=== PATIENT | male | born 1955 | race Caucasian/White ===

== ENCOUNTER 2017-11-21 23:41 | Observation (INO) | payer OTHER ==
[~2017-11-21] VITALS: Ht 185.4 cm; Wt 77.1 kg
[2017-11-22] MEDS ORDERED: DIPH,PERTUSS(ACELL),TET VAC/PF 0.5 ML IM-VACC ONE ×2 (00:17→00:30)
[2017-11-22 00:22] LABS: BASOPHILS % (AUTO) 0 % (0-1); EOSINOPHILS % (AUTO) 0 % (1-7); LYMPHOCYTES # (AUTO) 0.33 x10^3/uL (1-3.4); LYMPHOCYTES % (AUTO) 4 % (22-44); MD NO; MEAN CORPUSCULAR HEMOGLOBIN 31.7 pg (27.5-34.5); MEAN CORPUSCULAR HGB CONC 34.1 g/dL (33.2-36.2); MEAN CORPUSCULAR VOLUME 92.9 fL (81-97); MEAN PLATELET VOLUME 7.6 fL (7.4-10.4); MONOCYTES # (AUTO) 0.68 x10^3/uL (0.2-0.8); MONOCYTES % (AUTO) 8 % (2-9); NEUTROPHILS # (AUTO) 7.84 x10^3/uL (1.8-6.8); NEUTROPHILS % (AUTO) 89 % (42-75); PLATELET COUNT 253 x10^3/uL (130-400); RED BLOOD COUNT 3.81 x10^6/uL (4.38-5.82); RED CELL DISTRIBUTION WIDTH 12.7 % (9.4-14.8)
[2017-11-22] MEDS ORDERED: LIDOCAINE 2%, 20ML INFIL ONE (00:30)
[2017-11-22 00:34] LABS: CHLORIDE 109 mmol/L (98-107)
[2017-11-22 00:35] LABS: ALBUMIN 3.7 g/dL (3.4-5.0); ANION GAP 10 mmol/L (5-15); CALCIUM 9.2 mg/dL (8.5-10.1); CREATININE 1.25 mg/dL (0.7-1.3)
[2017-11-22 00:38] LABS: TROPONIN I < 0.015 ng/mL (0.000-0.045)
[2017-11-22] MEDS ORDERED: LIDOCAINE-MPF 2% ,5ML ONE (01:21)
[2017-11-22] MEDS ORDERED: LIDOCAINE-MPF 2% ,5ML INFIL ONE (02:00)
[2017-11-22] MEDS ORDERED: OLAN15TA9 PO (02:07)
[2017-11-22] MEDS ORDERED: SODIUM CHLORIDE 0.9% 1,000 ML IV ONE (02:27)
[2017-11-22] MEDS ORDERED: ONDANSETRON 2MG/ML, 2ML IVPush PRN ×2 (02:30→06:00)
[2017-11-22 03:30] VITALS: BP 152/67
[2017-11-22] MEDS ORDERED: ACETAMINOPHEN 325 MG TABLET PO PRN (06:00)
[2017-11-22] MEDS ORDERED: POLYETHYLENE GLYCOL 17 GM PACKET PO PRN (06:00)
[2017-11-22] MEDS ORDERED: DOCUSATE 100 MG CAPSULE PO PRN (06:00)
[2017-11-22] MEDS: INSULIN LISPRO 100 UNITS/ML, PEN SQ-INSULIN SCH ×4 (07:00→21:28)
[2017-11-22 07:16] LABS: TROPONIN I < 0.015 ng/mL (0.000-0.045)
[2017-11-22 09:00] VITALS: BP 154/62
[2017-11-22] MEDS: SENNA/DOCUSATE TABLET PO SCH (09:00)
[2017-11-22 09:07] VITALS: BP 101/65
[2017-11-22] MEDS: SODIUM CHLORIDE FLUSH 10ML SYR IVF SCH ×2 (09:22→21:21)
[2017-11-22] MEDS: OLANZAPINE 5 MG TABLET PO SCH ×2 (09:22→21:00)
[2017-11-22 16:30] VITALS: BP 128/63
[2017-11-22 20:00] VITALS: BP 145/70
[2017-11-22] MEDS ORDERED: OLANZAPINE 10 MG TABLET ONE ×2 (20:59)
[2017-11-23 01:02] VITALS: BP 132/65
[2017-11-23 08:06] VITALS: BP 159/70
[2017-11-23] MEDS: INSULIN LISPRO 100 UNITS/ML, PEN SQ-INSULIN SCH ×3 (08:31→16:17)
[2017-11-23] MEDS: SODIUM CHLORIDE FLUSH 10ML SYR IVF SCH (08:32)
[2017-11-23] MEDS: SENNA/DOCUSATE TABLET PO SCH (08:33)
[2017-11-23] MEDS: OLANZAPINE 5 MG TABLET PO SCH ×2 (08:33→12:21)
[2017-11-23 10:18] LABS: BASOPHILS # (AUTO) 0.02 x10^3/uL (0-0.1); BASOPHILS % (AUTO) 1 % (0-1); EOSINOPHILS # (AUTO) 0.11 x10^3/uL (0-0.4); EOSINOPHILS % (AUTO) 2 % (1-7); LYMPHOCYTES # (AUTO) 1.02 x10^3/uL (1-3.4); LYMPHOCYTES % (AUTO) 20 % (22-44); MD NO; MEAN CORPUSCULAR HEMOGLOBIN 31.4 pg (27.5-34.5); MEAN CORPUSCULAR HGB CONC 33.9 g/dL (33.2-36.2); MEAN CORPUSCULAR VOLUME 92.7 fL (81-97); MEAN PLATELET VOLUME 7.4 fL (7.4-10.4); MONOCYTES # (AUTO) 0.54 x10^3/uL (0.2-0.8); MONOCYTES % (AUTO) 11 % (2-9); NEUTROPHILS # (AUTO) 3.48 x10^3/uL (1.8-6.8); NEUTROPHILS % (AUTO) 67 % (42-75); PLATELET COUNT 230 x10^3/uL (130-400); RED BLOOD COUNT 3.75 x10^6/uL (4.38-5.82); RED CELL DISTRIBUTION WIDTH 12.7 % (9.4-14.8)
[2017-11-23 10:32] LABS: ALANINE AMINOTRANSFERASE 46 U/L (12-78); ALBUMIN 2.9 g/dL (3.4-5.0); ANION GAP 8 mmol/L (5-15); CALCIUM 8.7 mg/dL (8.5-10.1); CHLORIDE 108 mmol/L (98-107); CREATININE 0.84 mg/dL (0.7-1.3)
[2017-11-23 10:40] LABS: ALKALINE PHOSPHATASE 78 U/L (45-117); BILIRUBIN,TOTAL 0.7 mg/dL (0.2-1.0); TOTAL PROTEIN 6.6 g/dL (6.4-8.2)
[2017-11-23] MEDS ORDERED: POTASSIUM CHLORIDE 20 MEQ TAB.ER.PRT PO ONE (11:30)
[2017-11-23 13:29] VITALS: BP 123/69
[2017-11-23] MEDS ORDERED: GADOBUTROL 7.5 MMOL/7.5 ML PFS ONE (15:16)
[2017-11-23] MEDS ORDERED: AMOXICILLIN/CLAV 875-125MG TABLET PO SCH (21:00)
== END 2017-11-23 18:23 | disposition home or self-care (01) ==
LOC: ED 23:59 → EDIP 11-22 02:43 → INTOOBSV 11-22 02:43 → 5SO 11-22 03:13
PROVIDERS: ADMIT Family Medicine; ATTEND Family Medicine
DX: S01.81XA Laceration without foreign body of other part of head, initial encounter (principal); S06.0X9A Concussion with loss of consciousness of unspecified duration, initial encounter; R55 Syncope and collapse; I10 Essential (primary) hypertension; G93.40 Encephalopathy, unspecified; F31.9 Bipolar disorder, unspecified; E11.9 Type 2 diabetes mellitus without complications; R53.2 Functional quadriplegia; Z23 Encounter for immunization; W01.0XXA Fall on same level from slipping, tripping and stumbling without subsequent striking against object, initial encounter; Y92.89 Other specified places as the place of occurrence of the external cause; Y93.89 Activity, other specified; Y99.8 Other external cause status
CPT/HCPCS: 12013; 36415; 70450; 70553; 71045; 72125; 80048; 80053; 82040; 82962; 84484; 85025; 90471; 90715; 93005; 93306; 93971; 97116; 97162; 97530; 99285; A9585; G0378; J1815

== ENCOUNTER 2018-03-24 11:52 | Inpatient (IN) | payer OTHER ==
[~2018-03-24] VITALS: Ht 180.3 cm; Wt 79.5 kg
[~2018-03-24 11:52] MED LIST: OLAN15TA9 PO
[2018-03-24] MEDS ORDERED: KETAMINE 100 MG/ML, 5ML IM ONE ×2 (12:00→13:30)
[2018-03-24] MEDS ORDERED: KETAMINE 50 MG/ML, 10ML ONE (12:01)
[2018-03-24 12:28] LABS: BASOPHILS # (AUTO) 0.02 x10^3/uL (0-0.1); BASOPHILS % (AUTO) 0 % (0-1); EOSINOPHILS # (AUTO) 0.08 x10^3/uL (0-0.4); EOSINOPHILS % (AUTO) 1 % (1-7); LYMPHOCYTES # (AUTO) 1.04 x10^3/uL (1-3.4); LYMPHOCYTES % (AUTO) 12 % (22-44); MD NO; MEAN CORPUSCULAR HGB CONC 33.8 g/dL (33.2-36.2); MEAN CORPUSCULAR VOLUME 91.8 fL (81-97); MEAN PLATELET VOLUME 7.6 fL (7.4-10.4); MONOCYTES # (AUTO) 0.69 x10^3/uL (0.2-0.8); MONOCYTES % (AUTO) 8 % (2-9); NEUTROPHILS # (AUTO) 6.78 x10^3/uL (1.8-6.8); NEUTROPHILS % (AUTO) 79 % (42-75); PLATELET COUNT 265 x10^3/uL (130-400); RED BLOOD COUNT 4.31 x10^6/uL (4.38-5.82); RED CELL DISTRIBUTION WIDTH 14.2 % (9.4-14.8)
[2018-03-24] MEDS ORDERED: PLEASE ENTER HEIGHT AND WEIGHT MC SCH (12:30)
[2018-03-24 12:40] LABS: ALANINE AMINOTRANSFERASE 43 U/L (12-78); ALBUMIN 3.6 g/dL (3.4-5.0); ANION GAP 8 mmol/L (5-15); CALCIUM 8.4 mg/dL (8.5-10.1); CHLORIDE 115 mmol/L (98-107); SALICYLATE LEVEL 5.8 mg/dL (2.8-20.0)
[2018-03-24 12:52] LABS: ALKALINE PHOSPHATASE 95 U/L (45-117); BILIRUBIN,TOTAL 0.5 mg/dL (0.2-1.0); CREATININE 1.22 mg/dL (0.7-1.3); THYROID STIMULATING HORMONE 0.685 mIU/L (0.358-3.740); TOTAL PROTEIN 7.5 g/dL (6.4-8.2)
[2018-03-24] MEDS ORDERED: ZIPRASIDONE 20 MG INJ IM ONE ×2 (13:00→13:57)
[2018-03-24 13:04] LABS: ACETAMINOPHEN < 2 mcg/mL (10-30)
[2018-03-24] MEDS ORDERED: SODIUM CHLORIDE 0.9% 1,000ML IVBOLUS ONE (15:00)
[2018-03-24] MEDS ORDERED: LORazepam 1MG TABLET PO ONE (18:30)
[2018-03-24] MEDS ORDERED: DIPHENHYDRAMINE 50 MG CAPSULE ONE (18:36)
[2018-03-24] MEDS ORDERED: LORazepam 1MG TABLET ONE (18:37)
[2018-03-24] MEDS ORDERED: DIPHENHYDRAMINE 25 MG CAPSULE PO ONE (19:00)
[2018-03-24] MEDS ORDERED: POLYETHYLENE GLYCOL 17 GM PACKET PO PRN (20:00)
[2018-03-24] MEDS ORDERED: ACETAMINOPHEN 325 MG TABLET PO PRN (20:00)
[2018-03-24] MEDS ORDERED: ONDANSETRON 2MG/ML, 2ML IVPush PRN (20:00)
[2018-03-24] MEDS ORDERED: BISACODYL 10 MG SUPP PR PRN (20:00)
[2018-03-24] MEDS: HEPARIN 5,000 UNITS/ML, 1ML SQ SCH (22:00)
[2018-03-24] MEDS: NS + 20MEQ KCL 1,000 ML IV SCH (23:11)
[2018-03-24] MEDS: OLANZAPINE 5 MG TABLET PO SCH (23:11)
[2018-03-25] MEDS ORDERED: ZIPRASIDONE 20 MG INJ IM ONE (01:00)
[2018-03-25 02:00] VITALS: BP 126/68
[2018-03-25 04:35] LABS: MICROSCOPIC AUTO
[2018-03-25 04:37] LABS: CULTURE INDICATED? NO
[2018-03-25 04:43] LABS: AMPHETAMINE SCREEN, URINE Negative (Negative); BARBITURATE SCREEN, URINE Negative (Negative); BENZODIAZEPINE SCREEN, URINE Negative (Negative); CANNABINOID SCREEN, URINE Negative (Negative); COCAINE SCREEN, URINE Negative (Negative); METHADONE SCREEN, URINE Negative (Negative); OPIATE SCREEN, URINE Negative (Negative)
[2018-03-25 05:36] LABS: BASOPHILS # (AUTO) 0.02 x10^3/uL (0-0.1); BASOPHILS % (AUTO) 1 % (0-1); EOSINOPHILS # (AUTO) 0.12 x10^3/uL (0-0.4); EOSINOPHILS % (AUTO) 3 % (1-7); LYMPHOCYTES # (AUTO) 1.08 x10^3/uL (1-3.4); LYMPHOCYTES % (AUTO) 22 % (22-44); MD NO; MEAN CORPUSCULAR HEMOGLOBIN 31.4 pg (27.5-34.5); MEAN CORPUSCULAR HGB CONC 33.9 g/dL (33.2-36.2); MEAN CORPUSCULAR VOLUME 92.4 fL (81-97); MONOCYTES # (AUTO) 0.48 x10^3/uL (0.2-0.8); MONOCYTES % (AUTO) 10 % (2-9); NEUTROPHILS # (AUTO) 3.27 x10^3/uL (1.8-6.8); NEUTROPHILS % (AUTO) 66 % (42-75); PLATELET COUNT 203 x10^3/uL (130-400); RED BLOOD COUNT 3.85 x10^6/uL (4.38-5.82); RED CELL DISTRIBUTION WIDTH 14.3 % (9.4-14.8)
[2018-03-25 05:41] LABS: ALBUMIN 2.8 g/dL (3.4-5.0); ANION GAP 6 mmol/L (5-15); CALCIUM 8.2 mg/dL (8.5-10.1); CHLORIDE 116 mmol/L (98-107)
[2018-03-25 05:45] LABS: ALANINE AMINOTRANSFERASE 32 U/L (12-78); ALKALINE PHOSPHATASE 78 U/L (45-117); BILIRUBIN,TOTAL 0.5 mg/dL (0.2-1.0); CREATINE KINASE, TOTAL 490 U/L (39-308); CREATININE 0.81 mg/dL (0.7-1.3); TOTAL PROTEIN 6.2 g/dL (6.4-8.2)
[2018-03-25] MEDS: HEPARIN 5,000 UNITS/ML, 1ML SQ SCH ×2 (06:00→13:58)
[2018-03-25] MEDS: NS + 20MEQ KCL 1,000 ML IV SCH ×2 (06:24→13:03)
[2018-03-25] MEDS: OLANZAPINE 5 MG TABLET PO SCH (08:43)
[2018-03-25] MEDS ORDERED: SENNA/DOCUSATE TABLET PO SCH (09:00)
[2018-03-25 09:16] VITALS: BP 152/82
[2018-03-25 12:41] VITALS: BP 159/73
[2018-03-25 19:06] VITALS: BP 146/65
== END 2018-03-25 19:15 | DRG 885 ==
LOC: ED 12:01 → EDIP 18:29 → 4NOR 21:35
PROVIDERS: ADMIT Internal Medicine; ATTEND Internal Medicine
DX: F23 Brief psychotic disorder (principal); M62.82 Rhabdomyolysis; E87.6 Hypokalemia; I10 Essential (primary) hypertension; F31.9 Bipolar disorder, unspecified; F17.210 Nicotine dependence, cigarettes, uncomplicated; E11.9 Type 2 diabetes mellitus without complications
CPT/HCPCS: 36415; 80053; 80307; 80329; 81001; 82550; 84443; 85025; 93005; 96372; 99285; J3480; J3486; G0480; J7030; Q0163

== ENCOUNTER 2018-04-14 05:49 | Emergency (ER) | payer OTHER ==
[~2018-04-14] VITALS: Ht 172.7 cm; Wt 90.0 kg
[2018-04-14 05:56] VITALS: BP 118/74
== END 2018-04-14 06:05 | disposition home or self-care (01) ==
LOC: ED 06:04
DX: F10.220 Alcohol dependence with intoxication, uncomplicated (principal); I10 Essential (primary) hypertension; E11.9 Type 2 diabetes mellitus without complications
CPT/HCPCS: 99283

== ENCOUNTER 2018-06-10 02:46 | Observation (INO) | payer OTHER ==
[~2018-06-10] VITALS: Ht 172.7 cm; Wt 81.1 kg
[2018-06-10] MEDS ORDERED: LORazepam 1MG TABLET ONE ×2 (05:05)
[2018-06-10 05:19] LABS: BASOPHILS # (AUTO) 0.02 x10^3/uL (0-0.1); BASOPHILS % (AUTO) 0 % (0-1); EOSINOPHILS # (AUTO) 0.26 x10^3/uL (0-0.4); EOSINOPHILS % (AUTO) 4 % (1-7); LYMPHOCYTES # (AUTO) 1.18 x10^3/uL (1-3.4); LYMPHOCYTES % (AUTO) 16 % (22-44); MD NO; MEAN CORPUSCULAR HEMOGLOBIN 31.2 pg (27.5-34.5); MEAN CORPUSCULAR HGB CONC 34.2 g/dL (33.2-36.2); MONOCYTES # (AUTO) 0.83 x10^3/uL (0.2-0.8); MONOCYTES % (AUTO) 11 % (2-9); NEUTROPHILS # (AUTO) 4.98 x10^3/uL (1.8-6.8); NEUTROPHILS % (AUTO) 69 % (42-75); PLATELET COUNT 217 x10^3/uL (130-400); RED BLOOD COUNT 4.38 x10^6/uL (4.38-5.82); RED CELL DISTRIBUTION WIDTH 14.1 % (9.4-14.8)
[2018-06-10 05:21] LABS: ALBUMIN 3.7 g/dL (3.4-5.0); ANION GAP 7 mmol/L (5-15); CALCIUM 9.1 mg/dL (8.5-10.1); CHLORIDE 110 mmol/L (98-107)
[2018-06-10 05:25] LABS: ALANINE AMINOTRANSFERASE 24 U/L (12-78); ALKALINE PHOSPHATASE 73 U/L (45-117); BILIRUBIN,TOTAL 1.2 mg/dL (0.2-1.0); CREATININE 1.05 mg/dL (0.7-1.3); TOTAL PROTEIN 7.5 g/dL (6.4-8.2)
[2018-06-10 05:28] LABS: ACETAMINOPHEN < 2 mcg/mL (10-30); SALICYLATE LEVEL < 1.7 mg/dL (2.8-20.0)
[2018-06-10] MEDS ORDERED: LORazepam 1MG TABLET PO ONE (05:30)
[2018-06-10] MEDS ORDERED: ZIPRASIDONE 20MG CAPSULE PO PRN (08:00)
[2018-06-10] MEDS ORDERED: ZIPRASIDONE 20 MG INJ IM PRN (08:00)
[2018-06-10] MEDS ORDERED: DIPHENHYDRAMINE 50 MG CAPSULE PO PRN (08:00)
[2018-06-10] MEDS ORDERED: ONDANSETRON ODT 4 MG PO PRN (08:00)
[2018-06-10] MEDS ORDERED: ACETAMINOPHEN 325 MG TABLET PO PRN (08:00)
[2018-06-10] MEDS ORDERED: DOCUSATE 100 MG CAPSULE PO PRN (08:00)
[2018-06-10] MEDS ORDERED: POLYETHYLENE GLYCOL 17 GM PACKET PO PRN (08:00)
[2018-06-10] MEDS ORDERED: OLANZAPINE 5 MG TABLET PO SCH (09:00)
[2018-06-10] MEDS ORDERED: SENNA/DOCUSATE TABLET PO SCH (09:00)
[2018-06-10 09:03] VITALS: BP 148/66
[2018-06-10 11:44] LABS: AMPHETAMINE SCREEN, URINE Negative (Negative); BARBITURATE SCREEN, URINE Negative (Negative); BENZODIAZEPINE SCREEN, URINE Negative (Negative); CANNABINOID SCREEN, URINE Negative (Negative); COCAINE SCREEN, URINE Negative (Negative); METHADONE SCREEN, URINE Negative (Negative); OPIATE SCREEN, URINE Negative (Negative)
[2018-06-10] MEDS ORDERED: OLANZAPINE 5 MG TABLET ONE (12:31)
[2018-06-10] MEDS ORDERED: SENNA/DOCUSATE TABLET ONE (12:31)
[2018-06-11] MEDS ORDERED: DIVA500T2 PO ×2 (12:11→12:12)
[2018-06-11] MEDS ORDERED: LORA10TA75 PO (12:11)
[2018-06-11] MEDS ORDERED: FLUT9.9S NS (12:11)
[2018-06-11] MEDS ORDERED: HALO10TA PO (12:12)
[2018-06-11] MEDS ORDERED: LEVO25TA2 PO (12:12)
[2018-06-11] MEDS ORDERED: BENZ1TAB61 PO (12:12)
[2018-06-11] MEDS ORDERED: HYDR50CA PO (12:12)
== END 2018-06-10 15:35 | disposition other institution (70) ==
LOC: ED 07:03 → EDIP 07:04 → SUATTDRO 07:47 → ED 08:19 → 2N 14:00
PROVIDERS: ADMIT Internal Medicine; ATTEND Internal Medicine
DX: F29 Unspecified psychosis not due to a substance or known physiological condition (principal); R45.851 Suicidal ideations; I10 Essential (primary) hypertension; R45.850 Homicidal ideations; F31.9 Bipolar disorder, unspecified; F22 Delusional disorders; E11.9 Type 2 diabetes mellitus without complications; Z59.0 Homelessness; Z91.19 Patient's noncompliance with other medical treatment and regimen
CPT/HCPCS: 36415; 80053; 80307; 80329; 85025; G0378; G0480

== ENCOUNTER 2018-06-10 15:42 | Inpatient (IN) | payer OTHER ==
[~2018-06-10] VITALS: Ht 172.7 cm; Wt 83.0 kg
[2018-06-10] MEDS ORDERED: BISACODYL 10 MG SUPP PR PRN (16:00)
[2018-06-10 16:04] VITALS: BP 120/65
[2018-06-10 16:10] VITALS: BP 120/65
[2018-06-10] MEDS ORDERED: PLEASE ENTER HEIGHT AND WEIGHT MC SCH (16:30)
[2018-06-10] MEDS ORDERED: POLYETHYLENE GLYCOL 17 GM PACKET PO PRN (17:00)
[2018-06-10] MEDS ORDERED: ONDANSETRON 4 MG TABLET PO PRN (17:00)
[2018-06-10 19:36] LABS: MICROSCOPIC NOT IND
[2018-06-10 19:38] VITALS: BP 138/68
[2018-06-10 19:38] LABS: CULTURE INDICATED? NO
[2018-06-10] MEDS: ACETAMINOPHEN 325 MG TABLET PO PRN (20:31)
[2018-06-10] MEDS: DOCUSATE 100 MG CAPSULE PO PRN (20:31)
[2018-06-10] MEDS: DOXEPIN 25 MG CAPSULE PO SCH (21:06)
[2018-06-11] MEDS: ACETAMINOPHEN 325 MG TABLET PO PRN ×2 (01:14→14:57)
[2018-06-11 05:10] LABS: HCT (SEDRATE) 39.8 % (39.2-51.8)
[2018-06-11 06:06] LABS: CHOL/HDL RATIO 2.7; CHOLESTEROL, TOTAL 152 mg/dL (140-239); HDL CHOL % 37 % (26-37); HDL CHOLESTEROL (DIRECT) 56 mg/dL (40-60); LDL CHOLESTEROL,CALCULATED 77 mg/dL (54-169); LDL/HDL RATIO 1.4 (0.5-3.0); T4 (THYROXINE) 4.7 mcg/dL (4.5-12.1); TRIGLYCERIDES 95 mg/dL (50-200); VLDL CHOLESTEROL 19 mg/dL (0-25)
[2018-06-11 06:17] LABS: FOLATE LEVEL > 20.0 ng/mL (3.1-17.5)
[2018-06-11 08:27] VITALS: BP 121/80
[2018-06-11] MEDS ORDERED: LORA10TA75 PO (12:11)
[2018-06-11] MEDS ORDERED: DIVA500T2 PO ×2 (12:11→12:12)
[2018-06-11] MEDS ORDERED: FLUT9.9S NS (12:11)
[2018-06-11] MEDS ORDERED: BENZ1TAB61 PO (12:12)
[2018-06-11] MEDS ORDERED: HYDR50CA PO (12:12)
[2018-06-11] MEDS ORDERED: LEVO25TA2 PO (12:12)
[2018-06-11] MEDS ORDERED: HALO10TA PO (12:12)
[2018-06-11] MEDS: NICOTINE 21 MG/24 HR PATCH.TD24 TD SCH (12:34)
[2018-06-11 19:54] VITALS: BP 123/74
[2018-06-11] MEDS: BENZTROPINE 1 MG TABLET PO SCH (20:20)
[2018-06-11] MEDS: DOXEPIN 25 MG CAPSULE PO SCH (20:21)
[2018-06-11] MEDS: DIVALPROEX 500 MG TABLET.DR PO SCH (20:21)
[2018-06-11] MEDS: HALOPERIDOL 5 MG TABLET PO SCH (20:21)
[2018-06-11] MEDS: HYDROXYZINE PAMOATE 50MG CAP PO PRN (20:34)
[2018-06-12] MEDS: HYDROXYZINE PAMOATE 50MG CAP PO PRN ×4 (01:06→20:25)
[2018-06-12] MEDS: ACETAMINOPHEN 325 MG TABLET PO PRN ×2 (04:09→15:07)
[2018-06-12] MEDS: LEVOTHYROXINE 25 MCG TABLET PO SCH (06:00)
[2018-06-12 07:59] VITALS: BP 134/71
[2018-06-12] MEDS: FLUTICASONE NASAL SPRAY 16GM NAS SCH (09:00)
[2018-06-12] MEDS: HALOPERIDOL 5 MG TABLET PO SCH ×2 (09:48→20:19)
[2018-06-12] MEDS: DIVALPROEX 500 MG TABLET.DR PO SCH ×2 (09:49→20:19)
[2018-06-12] MEDS: LORATADINE 10 MG TABLET PO SCH (09:49)
[2018-06-12] MEDS: BENZTROPINE 1 MG TABLET PO SCH ×2 (09:49→20:19)
[2018-06-12] MEDS: NICOTINE 21 MG/24 HR PATCH.TD24 TD SCH (12:40)
[2018-06-12 19:43] VITALS: BP 110/69
[2018-06-13] MEDS: HYDROXYZINE PAMOATE 50MG CAP PO PRN ×2 (05:01→20:11)
[2018-06-13] MEDS: LEVOTHYROXINE 25 MCG TABLET PO SCH (05:01)
[2018-06-13 07:52] VITALS: BP 112/69
[2018-06-13] MEDS: BENZTROPINE 1 MG TABLET PO SCH ×2 (08:08→21:00)
[2018-06-13] MEDS: DIVALPROEX 500 MG TABLET.DR PO SCH ×2 (08:08→21:00)
[2018-06-13] MEDS: ACETAMINOPHEN 325 MG TABLET PO PRN ×3 (08:09→20:11)
[2018-06-13] MEDS: FLUTICASONE NASAL SPRAY 16GM NAS SCH (08:09)
[2018-06-13] MEDS: LORATADINE 10 MG TABLET PO SCH (08:09)
[2018-06-13] MEDS: HALOPERIDOL 5 MG TABLET PO SCH ×2 (08:09→20:05)
[2018-06-13] MEDS: NICOTINE 21 MG/24 HR PATCH.TD24 TD SCH (11:49)
[2018-06-13 19:31] VITALS: BP 132/76
[2018-06-14] MEDS: LEVOTHYROXINE 25 MCG TABLET PO SCH (05:36)
[2018-06-14 07:24] VITALS: BP 118/68
[2018-06-14] MEDS: BENZTROPINE 1 MG TABLET PO SCH ×2 (08:41→20:06)
[2018-06-14] MEDS: FLUTICASONE NASAL SPRAY 16GM NAS SCH (08:42)
[2018-06-14] MEDS: DIVALPROEX 500 MG TABLET.DR PO SCH ×2 (08:42→20:06)
[2018-06-14] MEDS: LORATADINE 10 MG TABLET PO SCH (08:42)
[2018-06-14] MEDS: HALOPERIDOL 5 MG TABLET PO SCH ×2 (08:42→20:06)
[2018-06-14] MEDS: NICOTINE 21 MG/24 HR PATCH.TD24 TD SCH (12:58)
[2018-06-14 19:55] VITALS: BP 123/78
[2018-06-14] MEDS: HYDROXYZINE PAMOATE 50MG CAP PO PRN (20:06)
[2018-06-15] MEDS: ACETAMINOPHEN 325 MG TABLET PO PRN (03:24)
[2018-06-15] MEDS: LEVOTHYROXINE 25 MCG TABLET PO SCH (05:21)
[2018-06-15] MEDS: HYDROXYZINE PAMOATE 50MG CAP PO PRN ×2 (07:17→20:11)
[2018-06-15 07:30] VITALS: BP 129/69
[2018-06-15] MEDS: BENZTROPINE 1 MG TABLET PO SCH ×2 (08:35→20:11)
[2018-06-15] MEDS: HALOPERIDOL 5 MG TABLET PO SCH ×2 (08:36→20:11)
[2018-06-15] MEDS: DIVALPROEX 500 MG TABLET.DR PO SCH ×2 (08:36→20:10)
[2018-06-15] MEDS: LORATADINE 10 MG TABLET PO SCH (08:36)
[2018-06-15] MEDS: FLUTICASONE NASAL SPRAY 16GM NAS SCH (08:37)
[2018-06-15] MEDS: NICOTINE 21 MG/24 HR PATCH.TD24 TD SCH (11:25)
[2018-06-15 19:23] VITALS: BP 128/73
[2018-06-16] MEDS: LEVOTHYROXINE 25 MCG TABLET PO SCH (05:28)
[2018-06-16] MEDS: HYDROXYZINE PAMOATE 50MG CAP PO PRN ×2 (05:28→20:24)
[2018-06-16 07:28] VITALS: BP 123/71
[2018-06-16] MEDS: HALOPERIDOL 5 MG TABLET PO SCH ×2 (08:04→20:23)
[2018-06-16] MEDS: FLUTICASONE NASAL SPRAY 16GM NAS SCH (08:04)
[2018-06-16] MEDS: DIVALPROEX 500 MG TABLET.DR PO SCH ×2 (08:04→20:23)
[2018-06-16] MEDS: BENZTROPINE 1 MG TABLET PO SCH ×2 (08:04→20:22)
[2018-06-16] MEDS: LORATADINE 10 MG TABLET PO SCH (08:04)
[2018-06-16] MEDS: NICOTINE 21 MG/24 HR PATCH.TD24 TD SCH (12:34)
[2018-06-16 19:40] VITALS: BP 131/67
[2018-06-17] MEDS: LEVOTHYROXINE 25 MCG TABLET PO SCH (05:24)
[2018-06-17 07:23] VITALS: BP 144/77
[2018-06-17] MEDS: LORATADINE 10 MG TABLET PO SCH (08:27)
[2018-06-17] MEDS: BENZTROPINE 1 MG TABLET PO SCH ×2 (08:27→20:14)
[2018-06-17] MEDS: DIVALPROEX 500 MG TABLET.DR PO SCH ×2 (08:27→20:14)
[2018-06-17] MEDS: HALOPERIDOL 5 MG TABLET PO SCH ×2 (08:27→20:14)
[2018-06-17] MEDS: FLUTICASONE NASAL SPRAY 16GM NAS SCH (08:30)
[2018-06-17] MEDS: NICOTINE 21 MG/24 HR PATCH.TD24 TD SCH (13:40)
[2018-06-17 19:23] VITALS: BP 140/77
[2018-06-17] MEDS: HYDROXYZINE PAMOATE 50MG CAP PO PRN (20:14)
[2018-06-18] MEDS: LEVOTHYROXINE 25 MCG TABLET PO SCH (05:00)
[2018-06-18 07:30] VITALS: BP 126/72
[2018-06-18] MEDS: FLUTICASONE NASAL SPRAY 16GM NAS SCH (08:32)
[2018-06-18] MEDS: DIVALPROEX 500 MG TABLET.DR PO SCH ×2 (08:33→20:04)
[2018-06-18] MEDS: BENZTROPINE 1 MG TABLET PO SCH ×2 (08:33→20:04)
[2018-06-18] MEDS: LORATADINE 10 MG TABLET PO SCH (08:33)
[2018-06-18] MEDS: HALOPERIDOL 5 MG TABLET PO SCH ×2 (08:34→20:04)
[2018-06-18] MEDS: HYDROXYZINE PAMOATE 50MG CAP PO PRN ×2 (08:35→20:04)
[2018-06-18] MEDS: NICOTINE 21 MG/24 HR PATCH.TD24 TD SCH (13:56)
[2018-06-18 19:21] VITALS: BP 135/79
[2018-06-19] MEDS: LEVOTHYROXINE 25 MCG TABLET PO SCH (05:24)
[2018-06-19 07:30] VITALS: BP 100/52
[2018-06-19] MEDS: LORATADINE 10 MG TABLET PO SCH (09:09)
[2018-06-19] MEDS: HYDROXYZINE PAMOATE 50MG CAP PO PRN (09:09)
[2018-06-19] MEDS: DIVALPROEX 500 MG TABLET.DR PO SCH ×2 (09:09→20:33)
[2018-06-19] MEDS: FLUTICASONE NASAL SPRAY 16GM NAS SCH (09:09)
[2018-06-19] MEDS: BENZTROPINE 1 MG TABLET PO SCH ×2 (09:09→20:33)
[2018-06-19] MEDS: HALOPERIDOL 5 MG TABLET PO SCH ×2 (09:10→20:37)
[2018-06-19] MEDS: NICOTINE 21 MG/24 HR PATCH.TD24 TD SCH (13:10)
[2018-06-19 19:29] VITALS: BP 111/65
[2018-06-20] MEDS: LEVOTHYROXINE 25 MCG TABLET PO SCH (06:29)
[2018-06-20 07:24] VITALS: BP 148/71
[2018-06-20] MEDS: FLUTICASONE NASAL SPRAY 16GM NAS SCH (08:31)
[2018-06-20] MEDS: LORATADINE 10 MG TABLET PO SCH (08:31)
[2018-06-20] MEDS: BENZTROPINE 1 MG TABLET PO SCH ×2 (08:31→20:31)
[2018-06-20] MEDS: HALOPERIDOL 5 MG TABLET PO SCH ×2 (08:32→20:31)
[2018-06-20] MEDS: DIVALPROEX 500 MG TABLET.DR PO SCH ×2 (08:32→20:31)
[2018-06-20] MEDS: HYDROXYZINE PAMOATE 50MG CAP PO PRN ×2 (11:33→22:29)
[2018-06-20] MEDS: NICOTINE 21 MG/24 HR PATCH.TD24 TD SCH (11:41)
[2018-06-20 19:23] VITALS: BP 131/76
[2018-06-21] MEDS: LEVOTHYROXINE 25 MCG TABLET PO SCH (05:26)
[2018-06-21 07:53] VITALS: BP 128/81
[2018-06-21] MEDS: FLUTICASONE NASAL SPRAY 16GM NAS SCH (08:37)
[2018-06-21] MEDS: LORATADINE 10 MG TABLET PO SCH (08:38)
[2018-06-21] MEDS: DIVALPROEX 500 MG TABLET.DR PO SCH ×2 (08:38→21:18)
[2018-06-21] MEDS: BENZTROPINE 1 MG TABLET PO SCH ×2 (08:38→21:18)
[2018-06-21] MEDS: HALOPERIDOL 5 MG TABLET PO SCH ×2 (08:38→21:18)
[2018-06-21] MEDS: NICOTINE 21 MG/24 HR PATCH.TD24 TD SCH (12:33)
[2018-06-21 19:24] VITALS: BP 116/62
[2018-06-21] MEDS: HYDROXYZINE PAMOATE 50MG CAP PO PRN (21:18)
[2018-06-22] MEDS: LEVOTHYROXINE 25 MCG TABLET PO SCH (06:27)
[2018-06-22 07:30] VITALS: BP 105/65
[2018-06-22] MEDS: BENZTROPINE 1 MG TABLET PO SCH ×2 (08:59→20:34)
[2018-06-22] MEDS: DIVALPROEX 500 MG TABLET.DR PO SCH ×2 (08:59→20:34)
[2018-06-22] MEDS: FLUTICASONE NASAL SPRAY 16GM NAS SCH (08:59)
[2018-06-22] MEDS: LORATADINE 10 MG TABLET PO SCH (08:59)
[2018-06-22] MEDS: HALOPERIDOL 5 MG TABLET PO SCH ×2 (08:59→20:34)
[2018-06-22] MEDS: NICOTINE 21 MG/24 HR PATCH.TD24 TD SCH (11:43)
[2018-06-22 19:26] VITALS: BP 138/78
[2018-06-23] MEDS: LEVOTHYROXINE 25 MCG TABLET PO SCH (05:52)
[2018-06-23 07:31] VITALS: BP 125/73
[2018-06-23] MEDS: FLUTICASONE NASAL SPRAY 16GM NAS SCH (08:30)
[2018-06-23] MEDS: LORATADINE 10 MG TABLET PO SCH (08:30)
[2018-06-23] MEDS: BENZTROPINE 1 MG TABLET PO SCH ×2 (08:30→20:02)
[2018-06-23] MEDS: DIVALPROEX 500 MG TABLET.DR PO SCH ×2 (08:30→20:02)
[2018-06-23] MEDS: HALOPERIDOL 5 MG TABLET PO SCH ×2 (08:31→20:02)
[2018-06-23] MEDS: HYDROXYZINE PAMOATE 50MG CAP PO PRN ×2 (08:44→20:02)
[2018-06-23] MEDS: NICOTINE 21 MG/24 HR PATCH.TD24 TD SCH (12:28)
[2018-06-23 19:22] VITALS: BP 147/73
[2018-06-24] MEDS: LEVOTHYROXINE 25 MCG TABLET PO SCH (05:42)
[2018-06-24 07:37] VITALS: BP 124/76
[2018-06-24] MEDS: DIVALPROEX 500 MG TABLET.DR PO SCH ×2 (08:17→20:20)
[2018-06-24] MEDS: FLUTICASONE NASAL SPRAY 16GM NAS SCH (08:17)
[2018-06-24] MEDS: LORATADINE 10 MG TABLET PO SCH (08:17)
[2018-06-24] MEDS: BENZTROPINE 1 MG TABLET PO SCH ×2 (08:17→20:19)
[2018-06-24] MEDS: HALOPERIDOL 5 MG TABLET PO SCH ×2 (08:17→20:20)
[2018-06-24] MEDS: NICOTINE 21 MG/24 HR PATCH.TD24 TD SCH (11:46)
[2018-06-24 19:59] VITALS: BP 109/77
[2018-06-24] MEDS: HYDROXYZINE PAMOATE 50MG CAP PO PRN (20:20)
[2018-06-25] MEDS: LEVOTHYROXINE 25 MCG TABLET PO SCH (05:58)
[2018-06-25 07:32] VITALS: BP 109/69
[2018-06-25] MEDS: DIVALPROEX 500 MG TABLET.DR PO SCH ×2 (08:09→20:04)
[2018-06-25] MEDS: LORATADINE 10 MG TABLET PO SCH (08:09)
[2018-06-25] MEDS: HALOPERIDOL 5 MG TABLET PO SCH ×2 (08:09→20:04)
[2018-06-25] MEDS: FLUTICASONE NASAL SPRAY 16GM NAS SCH (08:09)
[2018-06-25] MEDS: BENZTROPINE 1 MG TABLET PO SCH ×2 (08:09→20:04)
[2018-06-25] MEDS: NICOTINE 21 MG/24 HR PATCH.TD24 TD SCH (13:15)
[2018-06-25 19:38] VITALS: BP 134/72
[2018-06-26] MEDS: LEVOTHYROXINE 25 MCG TABLET PO SCH (06:11)
[2018-06-26 08:11] VITALS: BP 115/64
[2018-06-26] MEDS: LORATADINE 10 MG TABLET PO SCH (08:40)
[2018-06-26] MEDS: BENZTROPINE 1 MG TABLET PO SCH ×2 (08:40→20:06)
[2018-06-26] MEDS: FLUTICASONE NASAL SPRAY 16GM NAS SCH (08:40)
[2018-06-26] MEDS: DIVALPROEX 500 MG TABLET.DR PO SCH ×2 (08:41→20:06)
[2018-06-26] MEDS: HALOPERIDOL 5 MG TABLET PO SCH ×2 (08:41→20:07)
[2018-06-26] MEDS: DOCUSATE 100 MG CAPSULE PO PRN (08:56)
[2018-06-26] MEDS: NICOTINE 21 MG/24 HR PATCH.TD24 TD SCH (12:22)
[2018-06-26 20:03] VITALS: BP 130/76
[2018-06-26] MEDS: DOCUSATE 100 MG CAPSULE PO SCH (20:06)
[2018-06-27] MEDS: LEVOTHYROXINE 25 MCG TABLET PO SCH (05:47)
[2018-06-27 07:50] VITALS: BP 109/70
[2018-06-27] MEDS: HYDROXYZINE PAMOATE 50MG CAP PO PRN ×2 (08:21→20:27)
[2018-06-27] MEDS: HALOPERIDOL 5 MG TABLET PO SCH ×2 (08:21→20:26)
[2018-06-27] MEDS: DOCUSATE 100 MG CAPSULE PO SCH ×2 (08:21→20:26)
[2018-06-27] MEDS: LORATADINE 10 MG TABLET PO SCH (08:22)
[2018-06-27] MEDS: BENZTROPINE 1 MG TABLET PO SCH ×2 (08:22→20:27)
[2018-06-27] MEDS: DIVALPROEX 500 MG TABLET.DR PO SCH ×2 (08:22→20:27)
[2018-06-27] MEDS: FLUTICASONE NASAL SPRAY 16GM NAS SCH (08:54)
[2018-06-27] MEDS: NICOTINE 21 MG/24 HR PATCH.TD24 TD SCH (12:40)
[2018-06-27 19:33] VITALS: BP 115/70
[2018-06-28] MEDS: LEVOTHYROXINE 25 MCG TABLET PO SCH (06:13)
[2018-06-28 07:31] VITALS: BP 112/66
[2018-06-28] MEDS: LORATADINE 10 MG TABLET PO SCH (08:44)
[2018-06-28] MEDS: DIVALPROEX 500 MG TABLET.DR PO SCH ×2 (08:44→19:54)
[2018-06-28] MEDS: DOCUSATE 100 MG CAPSULE PO SCH ×2 (08:44→19:54)
[2018-06-28] MEDS: FLUTICASONE NASAL SPRAY 16GM NAS SCH (08:44)
[2018-06-28] MEDS: BENZTROPINE 1 MG TABLET PO SCH ×2 (08:45→19:54)
[2018-06-28] MEDS: HALOPERIDOL 5 MG TABLET PO SCH ×2 (08:45→19:54)
[2018-06-28] MEDS: NICOTINE 21 MG/24 HR PATCH.TD24 TD SCH (12:44)
[2018-06-28 19:31] VITALS: BP 128/81
[2018-06-29] MEDS: LEVOTHYROXINE 25 MCG TABLET PO SCH (06:16)
[2018-06-29 07:43] VITALS: BP 130/79
[2018-06-29] MEDS: BENZTROPINE 1 MG TABLET PO SCH ×2 (08:17→20:38)
[2018-06-29] MEDS: DOCUSATE 100 MG CAPSULE PO SCH ×2 (08:17→20:38)
[2018-06-29] MEDS: DIVALPROEX 500 MG TABLET.DR PO SCH ×2 (08:17→20:38)
[2018-06-29] MEDS: LORATADINE 10 MG TABLET PO SCH (08:17)
[2018-06-29] MEDS: HALOPERIDOL 5 MG TABLET PO SCH ×2 (08:17→20:38)
[2018-06-29] MEDS: FLUTICASONE NASAL SPRAY 16GM NAS SCH (08:18)
[2018-06-29] MEDS: NICOTINE 21 MG/24 HR PATCH.TD24 TD SCH (12:49)
[2018-06-29] MEDS ORDERED: DIVA-61 PO (18:02)
[2018-06-29] MEDS ORDERED: NICO-487 TD (18:02)
[2018-06-29] MEDS ORDERED: HALO5TAB5 PO (18:02)
[2018-06-29] MEDS ORDERED: LEVO25TA2 PO (18:02)
[2018-06-29] MEDS ORDERED: BENZ1TAB61 PO (18:02)
[2018-06-29] MEDS ORDERED: DOCU-131 PO (18:02)
[2018-06-29] MEDS ORDERED: LORA10TA75 PO (18:02)
[2018-06-29 19:47] VITALS: BP 147/86
[2018-06-29] MEDS: HYDROXYZINE PAMOATE 50MG CAP PO PRN (20:38)
[2018-06-30 07:40] VITALS: BP 138/78
[2018-06-30] MEDS: DIVALPROEX 500 MG TABLET.DR PO SCH (08:05)
[2018-06-30] MEDS: BENZTROPINE 1 MG TABLET PO SCH (08:05)
[2018-06-30] MEDS: ACETAMINOPHEN 325 MG TABLET PO PRN (08:05)
[2018-06-30] MEDS: DOCUSATE 100 MG CAPSULE PO SCH (08:05)
[2018-06-30] MEDS: LEVOTHYROXINE 25 MCG TABLET PO SCH (08:05)
[2018-06-30] MEDS: LORATADINE 10 MG TABLET PO SCH (08:06)
[2018-06-30] MEDS: FLUTICASONE NASAL SPRAY 16GM NAS SCH (08:06)
[2018-06-30] MEDS: HALOPERIDOL 5 MG TABLET PO SCH (08:06)
[2018-06-30] MEDS: HYDROXYZINE PAMOATE 50MG CAP PO PRN (08:13)
== END 2018-06-30 08:45 | DRG 885 ==
LOC: 3E 15:42
PROVIDERS: ADMIT Psychiatry & Neurology Psychosomatic Medicine; ATTEND Psychiatry & Neurology Psychosomatic Medicine
DX: F25.0 Schizoaffective disorder, bipolar type (principal); R45.851 Suicidal ideations; G24.01 Drug induced subacute dyskinesia; F29 Unspecified psychosis not due to a substance or known physiological condition; R45.850 Homicidal ideations; E03.9 Hypothyroidism, unspecified; F17.210 Nicotine dependence, cigarettes, uncomplicated; I10 Essential (primary) hypertension; E11.9 Type 2 diabetes mellitus without complications; T43.595A Adverse effect of other antipsychotics and neuroleptics, initial encounter; Z59.0 Homelessness; Z91.14 Patient's other noncompliance with medication regimen; Z83.3 Family history of diabetes mellitus; Z81.8 Family history of other mental and behavioral disorders; Y92.89 Other specified places as the place of occurrence of the external cause
CPT/HCPCS: 36415; 71045; 80061; 81003; 82140; 82607; 82746; 84436; 84443; 85651; 86592; 90656; 93005; 92523-GN

== ENCOUNTER 2019-01-06 05:45 | Emergency (ER) | payer MEDICARE, OTHER ==
[~2019-01-06 05:45] MED LIST changes: +BENZ1TAB61 PO; +DIVA-61 PO; +DIVA500T2 PO; +DOCU-131 PO; +FLUT9.9S NS; +HALO10TA PO; +HALO5TAB5 PO; +HYDR50CA PO; +LEVO25TA2 PO; +LORA10TA75 PO; +NICO-487 TD
--- NOTE | 2019-01-06 05:55 | NUR ---
IB [facility] FOUND ON GROUND AT [facility] [place] BY [employer], PER EMT PT INTOXICATED, DENIES LOC, DENIES BLOOD THINNERS. R/A-100%, HR-85, B/P-172/78. NOTED ABRASION TO PT'S RIGHT CHEECK, NOSE AND BLEEDING MANGO PT'S NOSE AND LIP. PT STATED 'i WON'T LAY DOWN", PT SITTING AT BEDSIDE, SIDERAILS UP X2, CALL LIGHT WITHIN REACH
[2019-01-06] MEDS ORDERED: BACITRACIN ZINC OINT 500U/GM, 0.9 GM ONE (06:01)
--- NOTE | 2019-01-06 06:04 | NUR ---
PT TO CT
--- NOTE | 2019-01-06 06:22 | NUR ---
MOVIE EDITOR AT PT'S BEDSIDE, CLEANED PT'S WOUNDS AND BACITRAICIN APPLIED TO PT'S NOSE AND RIGHT CHEEK
--- NOTE | 2019-01-06 06:49 | NUR ---
report given to caleb esparza
--- NOTE | 2019-01-06 07:05 | NUR ---
REPORT RECEIVED FROM RN LATASHA, PT A&OX4, RESPS EVEN AND UNLABORED, NEURO INTACT. PT INSTRUCTED TO REMAIN IN BED, PT INSTRUCTED TO USE CALL LIGHT TO CALL FOR STAFF ASSIST. PT VERBALIZES UNDERSTANDING. PT EDUCATED REGARDING FALL RISK PRECAUTIONS. BED LOCKED AND IN LOWEST POSITION. BLANCHE OSEI AT BEDSIDE AT THIS TIME REVIEWING RESULTS WITH PT, AWAITING SURGICAL CONSULT AT THIS TIME.
--- NOTE | 2019-01-06 07:20 | NUR ---
PT REFUSING TO COMPLY WITH FALL RISK PRECAUTIONS AT THIS TIME DESPITE RN EDUCATION. PT GETTING OUT OF BED WITHOUT STAFF ASSIST, DESPITE REPEATED EDUCATION. PT AMBULATORY WITH STEADY GAIT.
[2019-01-06] MEDS ORDERED: HALOPERIDOL 5 MG TABLET PO STA (07:24)
[2019-01-06] MEDS ORDERED: DIPHENHYDRAMINE 25 MG CAPSULE PO ONE (07:30)
[2019-01-06 08:22] VITALS: BP 146/74
--- NOTE | 2019-01-06 08:24 | NUR ---
PT RESTING IN GURNEY, PT A&OX4, NEURO INTACT. PT CONVERSING IN FULL SENTENCES WITHOUT DIFFICULTY. PT AWAITING SURGEON TO EVALUATE, PT AWARE OF POC. PT HAS NO COMPLAINTS AT THIS TIME.
--- NOTE | 2019-01-06 08:29 | NUR ---
MD METZ AT BEDSIDE TO ASSESS PT.
== END 2019-01-06 08:56 | disposition home or self-care (01) ==
LOC: ED 06:17
DX: S02.2XXA Fracture of nasal bones, initial encounter for closed fracture (principal); S00.83XA Contusion of other part of head, initial encounter; F10.120 Alcohol abuse with intoxication, uncomplicated; W01.0XXA Fall on same level from slipping, tripping and stumbling without subsequent striking against object, initial encounter; Y93.89 Activity, other specified; Y92.89 Other specified places as the place of occurrence of the external cause; Y99.8 Other external cause status; E11.9 Type 2 diabetes mellitus without complications; I10 Essential (primary) hypertension
CPT/HCPCS: 70450; 70486; 72125; 99284

== ENCOUNTER 2019-11-18 21:31 | Emergency (ER) | payer MEDICARE ==
[~2019-11-18] VITALS: Ht 172.7 cm; Wt 86.1 kg
[2019-11-18 21:42] VITALS: BP 173/76
--- NOTE | 2019-11-18 22:38 | NUR ---
CALLED FOR ROOM, NO ANSWER AT THIS TI ME, NEXT PT ROOMED
--- NOTE | 2019-11-18 23:13 | NUR ---
NO ANSWER WHEN CALLED FOR ROOM
--- NOTE | 2019-11-19 00:32 | NUR ---
nilx3 lwbs
== END 2019-11-19 00:34 | disposition left against medical advice (07) ==
LOC: ED 11-19 00:28
DX: Z53.21 Procedure and treatment not carried out due to patient leaving prior to being seen by health care provider (principal)